=== PATIENT | male | born 1965 | race Caucasian/White ===

== ENCOUNTER 2020-04-15 18:52 | Emergency (ER) | payer MEDICAID, OTHER ==
[~2020-04-15] VITALS: Ht 180.3 cm; Wt 88.6 kg
[~2020-04-15 18:52] MED LIST: CLIN-97 PO; DOCU-28 PO; LIDOcaine 1% W/epiNEPHrine 1:200,000 10ml vial ONE
[2020-04-15 19:03] VITALS: BP 122/89
[2020-04-15] MEDS ORDERED: TETanus/Pertussis (Acell)/Diphther VAC/PF (Tdap-Adult) 0.5ml syringe IMVAC ONE (19:35)
[2020-04-15] MEDS ORDERED: ceFAZolin 1gm IM kit IM STA (19:35)
[2020-04-15] MEDS ORDERED: bacitracin 15gm ointment TP ONE (19:35)
[2020-04-15] MEDS ORDERED: ondansetron 4mg rapidly disintigrating tab PO ONE (19:45)
[2020-04-15] MEDS ORDERED: HYDROcodone/acetaminophen 10/325mg tab PO ONE (19:45)
[2020-04-15] MEDS ORDERED: CEPH250T PO (20:10)
[2020-04-15] MEDS ORDERED: HYDR-4383 PO (20:29)
[2020-04-15] MEDS ORDERED: ONDA4TAB6 PO (20:29)
== END 2020-04-15 20:35 | disposition home or self-care (01) ==
LOC: ER 18:52
DX: M79.645 Pain in left finger(s) (principal); Z89.012 Acquired absence of left thumb; Z79.899 Other long term (current) drug therapy
CPT/HCPCS: 64450; 73140; 90471; 90715; 96372; 99284; J0690